=== PATIENT | female | born 1940 | race Caucasian/White ===

== ENCOUNTER 2016-10-05 11:16 | Emergency (ER) | payer OTHER, MEDICARE ==
[~2016-10-05] VITALS: Ht 165.1 cm; Wt 66.0 kg
[~2016-10-05 11:16] MED LIST: CHOL1000 PO; COQ10100 PO; TNR25 PO
[2016-10-05 11:28] VITALS: TEMP 36.5; Ht 165.1 cm; Wt 66.0 kg
--- NOTE | 2016-10-05 12:13 | EMERGENCY ROOM VISIT NOTE ---
History Report prepared by Dione: Luis Enrique Han Under the Supervision of: Dr. Jessenia Stiles M.D. First contact with patient: 11:40 Chief Complaint: WEAKNESS Stated Complaint: WEAKNESS, N,V, DIZZY HX: CARDIAC Nursing Triage Summary: Triage ntoe: pt reports"i woke up panting, nauseated, weak and dizzy i had had a nightmare." pt reports she has vomitted x 3. History of Present Illness The patient is a 76 year old female who presents to the Emergency Room with complaints of persistent generalized weakness that started this morning. The patient is feeling "internal" dizziness, which she describes as her head spinning. The patient has also been feeling nauseated. She vomited three times today and is currently less nauseous than she was earlier today. The patient woke up from a bad nightmare this morning with these symptoms. The patient called her daughter after she woke up. The daughter called the patient's Instrument Assembler (Dr. Enamorado). She was unable to get her an appointment with her doctor today. The patient has a pacemaker with a history of atrial fibrillation. She denies chest pain, back pain, abdominal pain, or leg swelling. The patient's daughter notes that she has a history of having a hard time dealing with her being away, who is on a business trip. The patient does not typically take medications for her stomach. Source of History: patient, family (daughter) Onset: this morning Position: other (generalized) Quality: other (weakness) Timing: other (persistent) Associated Symptoms: + nausea, + vomiting, No chest pain, No abdominal pain , No back pain Note: + dizziness Review of Systems See HPI for pertinent positives & negatives. A total of 10 systems reviewed and were otherwise negative. Past Medical & Surgical Medical Problems: (1) Aortocoronary Bypass (2) Atrial Fibrillation (3) CAD (coronary artery disease) (4) Cholelithiasis Nos (5) Diverticulosis Colon (W/O Ment Of Hemorrhage) (6) Hx of nonmelanoma skin cancer (7) Hyperlipidemia Nec/Nos (8) Hypertension Nos (9) Obstructive sleep apnea (10) Sick sinus syndrome (11) Tachy-yamile syndrome (12) Tick bite of neck Surgical Problems: (1) H/O breast biopsy (2) H/O colonoscopy (3) Hx of parotid biopsy (4) S/P CABG (coronary artery bypass graft) (5) S/P Maze operation for atrial fibrillation (6) S/P tonsillectomy and adenoidectomy Family History FH: heart disease FATHER, Onset:33 FHx: cancer Stroke GRANDMOTHER, Onset:86 Social History Smoking Status: Never Smoker Alcohol Use: none Marital Status: Housing Status: lives with significant other Occupation Status: retired Current/Historical Medications Scheduled Atenolol (Tenormin), 25 MG PO TID Cholecalciferol (Vitamin D3), 1 TAB PO QAM Coenzyme Q10 (Ubidecarenone) (Co Q-10), 150 MG PO DAILY Multivitamin (Multivitamin), 1 TAB PO QAM Warfarin Sodium (Warfarin Sodium), 1 TAB PO 3XWK Warfarin Sodium (Coumadin), 4 MG PO 4XWK Scheduled PRN Nitroglycerin (Nitrostat), 0.4 MG SL UD PRN for chest pain Allergies Coded Allergies: Epinephrine (Verified Allergy, Unknown, CRAWLING SENSATION, 10/05/16) Physical Exam Vital Signs Date Time Temp Pulse Resp B/P (MAP) Pulse Ox O2 Delivery O2 Flow Rate FiO2 10/05/16 13:38 87 20 142/65 96 Room Air 10/05/16 12:22 56 10/05/16 12:11 140/100 10/05/16 11:28 36.5 59 20 97 Room Air Physical Exam Vital signs reviewed. General: Well-appearing female, elderly, in no significant distress. Somewhat anxious and agitated. HEENT: No scleral icterus, PERRLA, neck supple. Atraumatic. Cardiovascular: Regular rate and rhythm, no extra sounds. Pulmonary: Clear to auscultation bilaterally, normal work of breathing. Abdomen: Soft, nontender, nondistended, positive bowel sounds. Musculoskeletal: Atraumatic, no peripheral edema. Neurologic: Patient awake alert and oriented x 3, full strength in all 4 extremities. Cranial nerves 2 through 12 grossly intact. Skin: Warm, dry, no rash Medical Decision & Procedures ER Provider Diagnostic Interpretation: X-ray results as stated below per interpretation by me and the radiologist: CHEST ONE VIEW PORTABLE HISTORY: Atypical chest pain COMPARISON: Chest 10/26/2015. FINDINGS: A few small linear scarlike densities at the left lung base. The lungs are otherwise clear. The heart is normal in size. No pleural effusions. No pneumothorax. Left-sided dual-chamber pacemaker. Poststernotomy changes. IMPRESSION: No acute process. Electronically signed by: Kurtis Díaz M.D. 10/05/2016 12:42 PM Dictated Date/Time: 10/05/2016 12:41 PM Laboratory Results 10/05/16 12:22 Red Blood Count 4.56, Mean Corpuscular Volume 83.8, Mean Corpuscular Hemoglobin 29.4, Mean Corpuscular Hemoglobin Concent 35.1, Mean Platelet Volume 9.8, Neutrophils (%) (Auto) 66.0, Lymphocytes (%) (Auto) 27.3, Monocytes (%) (Auto) 4.2, Eosinophils (%) (Auto) 1.7, Basophils (%) (Auto) 0.6, Neutrophils # (Auto) 3.49, Lymphocytes # (Auto) 1.44, Monocytes # (Auto) 0.22, Eosinophils # (Auto) 0.09, Basophils # (Auto) 0.03 10/05/16 12:22 Test 10/05/16 12:22 10/05/16 12:26 White Blood Count 5.28 K/uL (4.8-10.8) Red Blood Count 4.56 M/uL (4.2-5.4) Hemoglobin 13.4 g/dL (12.0-16.0) Hematocrit 38.2 % (37-47) Mean Corpuscular Volume 83.8 fL (80-100) Mean Corpuscular Hemoglobin 29.4 pg (25-34) Mean Corpuscular Hemoglobin Concent 35.1 g/dl (32-36) Platelet Count 207 K/uL (130-400) Mean Platelet Volume 9.8 fL (7.4-10.4) Neutrophils (%) (Auto) 66.0 % Lymphocytes (%) (Auto) 27.3 % Monocytes (%) (Auto) 4.2 % Eosinophils (%) (Auto) 1.7 % Basophils (%) (Auto) 0.6 % Neutrophils # (Auto) 3.49 K/uL (1.4-6.5) Lymphocytes # (Auto) 1.44 K/uL (1.2-3.4) Monocytes # (Auto) 0.22 K/uL (0.11-0.59) Eosinophils # (Auto) 0.09 K/uL (0-0.5) Basophils # (Auto) 0.03 K/uL (0-0.2) RDW Standard Deviation 41.1 fL (36.4-46.3) RDW Coefficient of Variation 13.4 % (11.5-14.5) Immature Granulocyte % (Auto) 0.2 % Immature Granulocyte # (Auto) 0.01 K/uL (0.00-0.02) Anion Gap 8.0 mmol/L (3-11) Est Creatinine Clear Calc Drug Dose 48.8 ml/min Estimated GFR () 72.0 Estimated GFR (Non- 62.2 BUN/Creatinine Ratio 15.8 (10-20) Calcium Level 9.2 mg/dl (8.5-10.1) Total Bilirubin 0.6 mg/dl (0.2-1) Direct Bilirubin < 0.1 mg/dl (0-0.2) Aspartate Amino Transf (AST/SGOT) 22 U/L (15-37) Alanine Aminotransferase (ALT/SGPT) 20 U/L (12-78) Alkaline Phosphatase 71 U/L (45-117) Total Creatine Kinase 74 U/L (26-192) Creatine Kinase MB 0.6 ng/ml (0.5-3.6) Creatine Kinase MB Ratio 0.8 (0-3.0) Total Protein 7.1 gm/dl (6.4-8.2) Albumin 3.8 gm/dl (3.4-5.0) Bedside Troponin I 0.000 ng/ml (0-0.045) Laboratory results per my review. Medications Administered Medications (Trade) Dose Ordered Sig/Alber Route Start Time Stop Time Status Last Admin Dose Admin Ondansetron HCl (ZOFRAN ODT 4MG Home Pack) 1 homepack STK-MED ONCE .ROUTE 10/05/16 13:40 10/05/16 13:41 DC 10/05/16 13:54 1 HOMEPACK ECG Indication: vomiting Rate (beats per minute): 57 Rhythm: other (atrial paced rhythm) Findings: no acute ischemic change, no ectopy, other (T wave abnormality anterolaterally) Comparison ECG Date: 27 October 2015 Change: no significant change ED Course 1155: Past medical records reviewed. The patient was evaluated in room C7. A complete history and physical examination was performed. 1240: Spoke with Dr. Enamorado, Instrument Assembler. He did not tell the patient to come see him at the hospital. 1325: Reassessed the patient. Discussed the findings with her. She verbalized understanding and agreement of the treatment plan. The patient is ready for discharge. Medical Decision Differential diagnosis: Acute coronary syndrome, pulmonary embolus, aortic dissection, musculoskeletal pain, pneumonia, pleural effusion, pneumothorax Medication Reconciliation: I attest that I have personally reviewed the patient' s current medication list. Blood Pressure Screening: Patient was found to have normal blood pressure on screening and does not require follow-up. This pt was evaluated and appeared to be in no distress. IV access was obtained and lab work was drawn. Pt was placed on the poultry process worker. EKG reveals no acute ischemia, no change from previous. Lab work reveals negative enzymes. Pt made an appt with cardiology today, but decided the ED was necessary when pt began vomiting. That being said, pt woke up nauseated, ate a "large tomato covered in vinegar, black tea with smashed whitney" and then vomited. CXR is negative for acute abnl. Lab work is reassuring. Pt insisted that Dr Enamorado be consulted. A phone call was placed, for which Dr Enamorado graciously returned. He is not in house and not on-call. An urgent cards consult was not felt to be necessary. Pt was d/c with zofran ODT HP and asked to use zantac prn. She will f/u with PCP this week and return to the ED for worsening of symptoms or any medical concerns. Impression Primary Impression: Nausea & vomiting Scribe Attestation The scribe's documentation has been prepared under my direction and personally reviewed by me in its entirety. I confirm that the note above accurately reflects all work, treatment, procedures, and medical decision making performed by me. Departure Information Dispostion Home / Self-Care Referrals Nitesh Fuentes MD (PCP) Forms HOME CARE DOCUMENTATION FORM, IMPORTANT VISIT INFORMATION Patient Instructions My [facility] Additional Instructions Diagnosis: Nausea and vomiting Zantac 75 mg twice daily as needed for gastritis. Zofran 4 mg ODT every 6 hours as needed for nausea. Maintain a bland diet, BRAT: Bananas, rice, applesauce and toast. Advance your diet slowly as tolerated. Follow-up with your physician this week for reevaluation. Have your blood pressure rechecked. Return to the ER for worsening of symptoms or any medical concerns.
[2016-10-05] MEDS ORDERED: WARF4TAB8 PO (12:21)
[2016-10-05] MEDS ORDERED: WARF4TAB PO (12:21)
[2016-10-05] MEDS ORDERED: ATEN-173 PO (12:21)
[2016-10-05] MEDS ORDERED: WARF4TAB43 PO (12:21)
[2016-10-05] MEDS ORDERED: COEN150C PO (12:21)
[2016-10-05 12:36] LABS: BASO % 0.6 %; BASO ABS # 0.03 K/uL (0-0.2); COMPLETE YES; EOS % 1.7 %; HEMATOCRIT 38.2 % (37-47); IG% 0.2 %; LYMPH % 27.3 %; LYMPH ABS # 1.44 K/uL (1.2-3.4); MEAN CELL VOLUME 83.8 fL (80-100); MEAN CORPUSCULAR HEMOGLOBIN 29.4 pg (25-34); MEAN CORPUSCULAR HGB CONC 35.1 g/dl (32-36); MEAN PLATELET VOLUME 9.8 fL (7.4-10.4); MONO % 4.2 %; PLATELET COUNT 207 K/uL (130-400); RED BLOOD COUNT 4.56 M/uL (4.2-5.4); WHITE BLOOD COUNT 5.28 K/uL (4.8-10.8)
--- NOTE | 2016-10-05 12:44 | DIAGNOSTIC IMAGING REPORT ---
CHEST ONE VIEW PORTABLE HISTORY: Atypical chest pain COMPARISON: Chest 10/26/2015. FINDINGS: A few small linear scarlike densities at the left lung base. The lungs are otherwise clear. The heart is normal in size. No pleural effusions. No pneumothorax. Left-sided dual-chamber pacemaker. Poststernotomy changes. IMPRESSION: No acute process. Electronically signed by: Kurtis Díaz M.D. 10/05/2016 12:42 PM Dictated Date/Time: 10/05/2016 12:41 PM
[2016-10-05 12:54] LABS: CALCIUM 9.2 mg/dl (8.5-10.1)
[2016-10-05 12:58] LABS: ALT/SGPT 20 U/L (12-78); BLOOD UREA NITROGEN 14 mg/dl (7-18); BUN/CREATININE RATIO 15.8 (10-20); CARBON DIOXIDE 27 mmol/L (21-32); CHLORIDE 104 mmol/L (98-107); CREATININE 0.91 mg/dl (0.60-1.20); GLUCOSE 94 mg/dl (70-99); POTASSIUM 3.6 mmol/L (3.5-5.1); SODIUM 139 mmol/L (136-145)
[2016-10-05 13:03] LABS: ALKALINE PHOSPHATASE 71 U/L (45-117); AST/SGOT 22 U/L (15-37); CKMB/CK RATIO 0.8 (0-3.0)
[2016-10-05 13:38] VITALS: BP 142/65; PULSE 87; O2SAT 96
[2016-10-05] MEDS ORDERED: ONDANSETRON HOME PACK 4MG OD TAB ONE (13:40)
[2017-04-08] MEDS ORDERED: MULT-506 PO (13:20)
[2017-04-08] MEDS ORDERED: NTRGSL4 SL (14:24)
[2017-04-08] MEDS ORDERED: WARF2TAB PO ×2 (18:36)
[2017-04-08] MEDS ORDERED: COEN1CAP17 PO (18:36)
[2017-04-08] MEDS ORDERED: ATEN25TA PO (18:36)
[2017-04-08] MEDS ORDERED: CTP/1 PO (20:17)
== END 2016-10-05 14:28 | disposition home or self-care (01) ==
LOC: C.EDB 11:20 → C.EDC 14:28
DX: R11.2 Nausea with vomiting, unspecified (principal); Z95.0 Presence of cardiac pacemaker; I48.91 Unspecified atrial fibrillation; I25.10 Atherosclerotic heart disease of native coronary artery without angina pectoris; K80.20 Calculus of gallbladder without cholecystitis without obstruction; E78.5 Hyperlipidemia, unspecified; I10 Essential (primary) hypertension; G47.33 Obstructive sleep apnea (adult) (pediatric); I49.5 Sick sinus syndrome; Z95.1 Presence of aortocoronary bypass graft; Z82.49 Family history of ischemic heart disease and other diseases of the circulatory system; Z80.9 Family history of malignant neoplasm, unspecified; Z79.01 Long term (current) use of anticoagulants; Z79.899 Other long term (current) drug therapy

== ENCOUNTER → 2016-12-14 | Outpatient (CLI) | payer OTHER, MEDICARE ==
[~2016-12-14] MED LIST changes: +ATEN-173 PO; +COEN150C PO; -COQ10100 PO; +MULT-506 PO; +NTRGSL4 SL; -TNR25 PO; +WARF4TAB PO; +WARF4TAB43 PO
[2016-12-14 17:51] LABS: BLOOD UREA NITROGEN 22 mg/dl (7-18); BUN/CREATININE RATIO 22.4 (10-20); CALCIUM 9.1 mg/dl (8.5-10.1); CARBON DIOXIDE 30 mmol/L (21-32); CHLORIDE 104 mmol/L (98-107); GLUCOSE 130 mg/dl (70-99); POTASSIUM 3.8 mmol/L (3.5-5.1); SODIUM 140 mmol/L (136-145)
== END | disposition home or self-care (01) ==
LOC: C.LAB 16:41
PROVIDERS: ATTEND Internal Medicine
DX: I48.2 Chronic atrial fibrillation (principal)

== ENCOUNTER → 2016-12-22 | Outpatient (CLI) | payer OTHER, MEDICARE ==
[~2016-12-22] MED LIST changes: +GADAVIST IV PRN; +NURSING VERBAL MED ORDER ONE
--- NOTE | 2016-12-23 14:31 | MAMMOGRAPHY REPORT ---
BREAST MRI OF BOTH BREASTS : 12/22/2016 CLINICAL HISTORY: The history provided is "screening". COMPARISON: Prior breast MRIs dated 07/23/2010 and 11/04/2008. Technique: The patient was placed prone in a dedicated breast imaging coil. Precontrast axial T1-cherelle ghted, axial T2-weighted fat saturation, and axial T1-weighted fat saturation images were obtained. After the administration of 5.5 mL of Gadavist IV contrast, sequential T1-weighted fat saturation mendoza ges were obtained. Subtraction images were obtained of the dynamic contrast enhanced sequences, and 3-D reformations were performed. The [employer] software was used for kinetic analysis. Findings: There is minimal background parenchymal enhancement bilaterally. Note that a large portion the left superior breast, predominantly the middle and posterior depths, cannot be evaluated on MRI due to sig nificant artifact from the patient's left-sided pacemaker. Within the limitations of the exam, there is no suspicious enhancing mass or area of abnormal non-mass enhancement within the portions of the breast that can be evaluated. There is no evidence of right axillary adenopathy. Note that the left axilla is obscured by artifact . Susceptibly artifact is seen within the sternal region, likely due to prior median sternotomy. Th e remainder of the visualized extramammary soft tissues are grossly unremarkable. IMPRESSION: ACR BI-RADS CATEGORY 1: NEGATIVE Note that a large portion of the left superior breast cannot be evaluated on MRI due to significant a rtifact from the patient's pacemaker. Within the limitations of the exam, there is no MRI evidence o f malignancy in the portions of the breast that can be evaluated. Note that no recent mammograms have been obtained. Mammograms are recommended in addition to MRI, gi ry that some malignancies do not enhance on MRI and are only seen mammographically, such as calcific ations. Additionally, the portions of the left breast which cannot be evaluated on MRI can be evalua ramiro mammographically. Rosemarie Rogel M.D. /:12/22/2016 17:33:46 Flight Nurse: investment analyst, [facility] BI-RADS Code: ACR BI-RADS Category 1: Negative
== END | disposition home or self-care (01) ==
LOC: C.MRI 13:15
PROVIDERS: ATTEND Internal Medicine
DX: Z12.39 Encounter for other screening for malignant neoplasm of breast (principal)

== ENCOUNTER 2017-04-14 20:16 | Emergency (ER) | payer OTHER, MEDICARE ==
[~2017-04-14] VITALS: Ht 165.1 cm; Wt 71.4 kg
[~2017-04-14 20:16] MED LIST changes: -ATEN-173 PO; +ATEN25TA PO; -CHOL1000 PO; -COEN150C PO; +COEN1CAP17 PO; +CTP/1 PO; -GADAVIST IV PRN; -NURSING VERBAL MED ORDER ONE; +WARF2TAB PO; -WARF4TAB PO; -WARF4TAB43 PO
[2017-04-14 20:20] VITALS: TEMP 36.6; Ht 165.1 cm; Wt 71.4 kg
--- NOTE | 2017-04-14 20:42 | EMERGENCY ROOM VISIT NOTE ---
History Report prepared by Dione: Michele Carvajal Under the Supervision of: Dr. Kash Loredo M.D. First contact with patient: 20:23 Chief Complaint: HYPERTENSION Stated Complaint: HIGH BLOOD PRESSURE History of Present Illness The patient is a 77 year old white female with a past medical history of aortocoronary bypass, a-fib, CAD, hyperlipidemia, HTN, pacemaker, S/P CABG who presents to the ED with a cc of constant HTN beginning a few hours ago. Pt has been keeping a bp log since her follow up appointment with her ham trimmer yesterday. She was here for similar symptoms 6 days ago. Pt notes her blood pressure lance to 200 systolic, and she became dizzy. She checked her bp again and received "Error" three times. Pt is here for a blood pressure. Positive taking Coumadin for a-fib, taking two Zoloft since she was prescribed it yesterday, recent travel to [place] three months ago, extra stress because she is packing and moving. Negative chest pain, SOB, headache. Pt was told to stop taking clonidine and take 50 atenolol BID. Source of History: patient Onset: a few hours ago Position: other (global) Quality: other (HTN) Timing: constant Associated Symptoms: No headache, No chest pain, No SOB Note: Associated symptoms: dizzy Review of Systems See HPI for pertinent positives and negatives. A total of ten systems were reviewed and were otherwise negative. Past Medical & Surgical Medical Problems: (1) Aortocoronary Bypass (2) Atrial Fibrillation (3) CAD (coronary artery disease) (4) Cholelithiasis Nos (5) Diverticulosis Colon (W/O Ment Of Hemorrhage) (6) Hx of nonmelanoma skin cancer (7) Hyperlipidemia Nec/Nos (8) Hypertension Nos (9) Obstructive sleep apnea (10) Sick sinus syndrome (11) Tachy-yamile syndrome (12) Tick bite of neck Surgical Problems: (1) H/O breast biopsy (2) H/O colonoscopy (3) Hx of parotid biopsy (4) Pacemaker (5) S/P CABG (coronary artery bypass graft) (6) S/P Maze operation for atrial fibrillation (7) S/P tonsillectomy and adenoidectomy Family History FH: heart disease FATHER, Onset:33 FHx: cancer Stroke GRANDMOTHER, Onset:86 Social History Smoking Status: Never Smoker Alcohol Use: none Marital Status: Housing Status: lives with significant other Occupation Status: retired Current/Historical Medications Scheduled Atenolol (Tenormin), 50 MG PO BID Coenzyme Q10 (Ubidecarenone) (Co Q 10), 100 MG PO DAILY Multivitamin (Multivitamin), 1 TAB PO 3XWK Sertraline Hcl (Zoloft), 50 MG PO DAILY Warfarin Sodium (Coumadin), 2 MG PO 5XWK Warfarin Sodium (Coumadin), 4 MG PO 2XWK Scheduled PRN Nitroglycerin (Nitrostat), 0.4 MG SL UD PRN for Chest Pain Allergies Coded Allergies: Epinephrine (Verified Allergy, Unknown, CRAWLING SENSATION, 04/14/17) Physical Exam Vital Signs Date Time Temp Pulse Resp B/P (MAP) Pulse Ox O2 Delivery O2 Flow Rate FiO2 04/14/17 22:41 59 16 184/95 95 04/14/17 22:25 59 16 184/95 95 04/14/17 22:13 55 22 183/98 96 04/14/17 20:30 61 04/14/17 20:20 36.6 80 16 217/115 95 Room Air Physical Exam GENERAL: Awake, alert, well-appearing, NAD HENT: Normocephalic, atraumatic. EYES: Normal conjunctiva. Sclera non-icteric. NECK: Supple. No nuchal rigidity. FROM. RESPIRATORY: CTAB, no rhonchi, wheezing, crackles CARDIAC: RRR, no MRG ABDOMEN: Soft, NTND, BS+ MSK: No chest wall TTP, no LE edema NEURO: GCS 15, CN 2-12 intact, moves all 4s on command SKIN: No rash or jaundice noted. Medical Decision & Procedures Laboratory Results 04/14/17 20:37 Red Blood Count 4.65, Mean Corpuscular Volume 83.9, Mean Corpuscular Hemoglobin 29.7, Mean Corpuscular Hemoglobin Concent 35.4, Mean Platelet Volume 10.2, Neutrophils (%) (Auto) 49.3, Lymphocytes (%) (Auto) 40.4, Monocytes (%) (Auto) 6.4, Eosinophils (%) (Auto) 3.0, Basophils (%) (Auto) 0.6, Neutrophils # (Auto) 3.16, Lymphocytes # (Auto) 2.59, Monocytes # (Auto) 0.41, Eosinophils # (Auto) 0.19, Basophils # (Auto) 0.04 04/14/17 20:37 Test 04/14/17 20:37 White Blood Count 6.41 K/uL (4.8-10.8) Red Blood Count 4.65 M/uL (4.2-5.4) Hemoglobin 13.8 g/dL (12.0-16.0) Hematocrit 39.0 % (37-47) Mean Corpuscular Volume 83.9 fL (80-100) Mean Corpuscular Hemoglobin 29.7 pg (25-34) Mean Corpuscular Hemoglobin Concent 35.4 g/dl (32-36) Platelet Count 180 K/uL (130-400) Mean Platelet Volume 10.2 fL (7.4-10.4) Neutrophils (%) (Auto) 49.3 % Lymphocytes (%) (Auto) 40.4 % Monocytes (%) (Auto) 6.4 % Eosinophils (%) (Auto) 3.0 % Basophils (%) (Auto) 0.6 % Neutrophils # (Auto) 3.16 K/uL (1.4-6.5) Lymphocytes # (Auto) 2.59 K/uL (1.2-3.4) Monocytes # (Auto) 0.41 K/uL (0.11-0.59) Eosinophils # (Auto) 0.19 K/uL (0-0.5) Basophils # (Auto) 0.04 K/uL (0-0.2) RDW Standard Deviation 39.9 fL (36.4-46.3) RDW Coefficient of Variation 13.3 % (11.5-14.5) Immature Granulocyte % (Auto) 0.3 % Immature Granulocyte # (Auto) 0.02 K/uL (0.00-0.02) Prothrombin Time 16.0 SECONDS (9.0-12.0) Prothromb Time International Ratio 1.5 (0.9-1.1) Activated Partial Thromboplast Time 30.4 SECONDS (21.0-31.0) Partial Thromboplastin Ratio 1.2 Anion Gap 4.0 mmol/L (3-11) Est Creatinine Clear Calc Drug Dose 45.9 ml/min Estimated GFR () 60.2 Estimated GFR (Non- 51.9 BUN/Creatinine Ratio 21.4 (10-20) Calcium Level 8.8 mg/dl (8.5-10.1) Laboratory results reviewed by me ECG Indication: other (HTN) Rate (beats per minute): 60 Rhythm: other (atrial paced) Findings: T-wave inversion (Anterior and in high lateral leads), other ( borderline OH, no other STS changes or TWI, right axis deviation) Comparison ECG Date: 04/08/17 Change: no significant change ED Course 2027: The patient was evaluated in room C10. A complete history and physical exam was performed. 2223: I reevaluated the patient and discussed the patient's current exam findings. 0: I reevaluated the patient. Discussed results and discharge instructions: she verbalized understanding and agreement. The patient is ready for discharge. Medical Decision The patient is a 77 year old white female with a past medical history of aortocoronary bypass, a-fib, CAD, hyperlipidemia, HTN, pacemaker, S/P CABG who presents to the ED with a cc of constant HTN beginning a few hours ago. Differential diagnosis: Etiologies such as benign hypertension, hypertensive emergency, cardiovascular pathology, pheochromocytoma, electrolyte abnormality, renal disease, endorgan damage, as well as others were entertained. Patient was seen and evaluated at the bedside. Patient was concerned as her blood pressure has been high. Patient was recently seen approximately 1 week prior when she had noted hypertension. Patient was given an as needed medication and followed up with her PCP to increase the amount of her atenolol that she takes. Patient states that she was taking her blood pressure today and it read in air and they were concerned that maybe it was too high to be read. Patient denies any headache, dizziness, numbness, or weakness. Patient has no dysarthria. Patient's exam does not show any focal neurologic deficit. Patient is acting appropriately. Patient's initial systolic was around 210. Repeat show that she was 180. Upon review of her medication she does only take atenolol for blood pressure. I did discuss with the patient while the numbers can be concerning that it is just as important not to lower it too quickly as this may also cause unwanted symptoms and/or outcomes. Patient was told the correct way in which to take her blood pressure which should be 5 minutes after being seated in a dark room with a back to chair with her arm resting on something at the level the heart. Patient was told that she needs to take 2 subsequent measurements and then average the 2. Patient was agreeable with this plan. Patient did have blood work that was completed along with an EKG. Patient did not have any obvious acute changes on her EKG. Patient's blood work was fairly unchanged from a week prior. She was deemed suitable for outpatient follow-up and treatment and told to follow-up with her PCP for further medication changes. Patient was agreeable with this plan of care. Patient was given strict follow-up, discharge, and return precautions. All questions were answered. Patient was deemed suitable for outpatient follow-up at this time. Patient agreed with the plan of care and was safely discharged home. Medication Reconcilliation Current Medication List: was personally reviewed by me Blood Pressure Screening Patient's blood pressure: Elevated blood pressure Blood pressure disposition: Referred to PCP Impression Primary Impression: Hypokalemia Scribe Attestation The scribe's documentation has been prepared under my direction and personally reviewed by me in its entirety. I confirm that the note above accurately reflects all work, treatment, procedures, and medical decision making performed by me. Departure Information Dispostion Home / Self-Care Referrals Nitesh Fuentes MD (PCP) Forms HOME CARE DOCUMENTATION FORM, IMPORTANT VISIT INFORMATION, WORK / SCHOOL INSTRUCTIONS Patient Instructions Hypertension Control, Hypertension Dc, My [facility] Additional Instructions Please return to the emergency department if you have worsening or recurrent symptoms not amenable to at-home treatment. Please call for a follow-up appointment with her primary care physician. Please take your medications as prescribed. If you have other concerns and/or complaints please feel free to also call your primary care physician's office or return the ED for further evaluation, management, and treatment. You were found to have an elevated blood pressure today (>120 sytolic or >90 diastolic). Per medicare guidelines, you need to follow up with this blood pressure screening with your Primary Care Physician (PCP). For a new PCP call [phone]. Take your medications as prescribed. You have been examined and treated today on an emergency basis only. This is not a substitute for, or an effort to provide, complete comprehensive medical care. It is impossible to recognize and treat all injuries or illnesses in a single emergency department visit. It is therefore important that you follow up closely with [facility], your PCP, and/or your specialist(s). Call as soon as possible for an appointment. Thank you for your time and consideration. I look forward to speaking with you again soon. Please don't hesitate to call us if you have any questions.
[2017-04-14 20:55] LABS: BASO % 0.6 %; BASO ABS # 0.04 K/uL (0-0.2); COMPLETE YES; IG% 0.3 %; LYMPH % 40.4 %; LYMPH ABS # 2.59 K/uL (1.2-3.4); MEAN CELL VOLUME 83.9 fL (80-100); MEAN CORPUSCULAR HEMOGLOBIN 29.7 pg (25-34); MEAN CORPUSCULAR HGB CONC 35.4 g/dl (32-36); MEAN PLATELET VOLUME 10.2 fL (7.4-10.4); MONO % 6.4 %; NEUT % 49.3 %; PLATELET COUNT 180 K/uL (130-400); RED BLOOD COUNT 4.65 M/uL (4.2-5.4); WHITE BLOOD COUNT 6.41 K/uL (4.8-10.8)
[2017-04-14 21:06] LABS: BUN/CREATININE RATIO 21.4 (10-20); CALCIUM 8.8 mg/dl (8.5-10.1); CREATININE 1.05 mg/dl (0.60-1.20); POTASSIUM 3.4 mmol/L (3.5-5.1)
[2017-04-14 21:08] LABS: INR 1.5 (0.9-1.1); PARTIAL THROMBOPLASTIN RATIO 1.2
[2017-04-14] MEDS ORDERED: SERT1TAB71 PO (21:24)
[2017-04-14] MEDS ORDERED: ATEN50TA PO (21:24)
[2017-04-14 22:41] VITALS: BP 184/95; PULSE 59; O2SAT 95
== END 2017-04-14 22:42 | disposition home or self-care (01) ==
LOC: C.EDB 20:17 → C.EDC 22:42
DX: E87.6 Hypokalemia (principal); Z95.1 Presence of aortocoronary bypass graft; I48.91 Unspecified atrial fibrillation; I25.10 Atherosclerotic heart disease of native coronary artery without angina pectoris; E78.5 Hyperlipidemia, unspecified; I10 Essential (primary) hypertension; K57.30 Diverticulosis of large intestine without perforation or abscess without bleeding; G47.33 Obstructive sleep apnea (adult) (pediatric); I49.5 Sick sinus syndrome; Z95.0 Presence of cardiac pacemaker; Z79.01 Long term (current) use of anticoagulants; Z82.49 Family history of ischemic heart disease and other diseases of the circulatory system; Z80.9 Family history of malignant neoplasm, unspecified

== ENCOUNTER 2017-05-17 22:35 | Emergency (ER) | payer OTHER, MEDICARE ==
[~2017-05-17] VITALS: Ht 165.1 cm; Wt 72.3 kg
[~2017-05-17 22:35] MED LIST changes: -ATEN25TA PO; +ATEN50TA PO; -CTP/1 PO; +SERT1TAB71 PO
[2017-05-17 22:37] VITALS: Ht 165.1 cm; Wt 72.3 kg
--- NOTE | 2017-05-17 23:18 | EMERGENCY ROOM VISIT NOTE ---
History Report prepared by Dione: Ralph Barajas Under the Supervision of: Dr. Bennett Schultz M.D. 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 Her blood pressure medication was higher than normal at 216. She notes tingling in the tips of her fingers. She notes a headache that has somewhat resolved itself. She currently rates her pain a 2/10 in severity. She states that she has gained ten pounds in the last month. She notes that she becomes anxious when her blood pressure abnormally increases. She was seen in the ED a month ago for similar symptoms. She notes that her blood pressure has fluctuated several times in the past month. She notes she has been working with her PCP to change her blood pressure medication. She reports taking Clonidine, though she is no longer taking the medication because her blood pressure was abnormally low. She was advised by her PCP to stop taking Clonidine, which she stopped taking a few days ago. She is currently taking Zoloft, Atenolol, Terazosin, and Coumadin. She has a history of CAD. She denies any history of CVA or atrial fibrillation. She denies any syncope, chest pain, urinary symptoms, back pain, and leg swelling. 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 She notes tingling in the tips of her fingers. She states weight gain. She notes anxiousness. She denies any leg swelling or syncope. Review of Systems See HPI for pertinent positives & negatives. A total of 10 systems reviewed and were otherwise negative. Past Medical & Surgical Medical Problems: (1) Aortocoronary Bypass (2) Atrial Fibrillation (3) CAD (coronary artery disease) (4) Cholelithiasis Nos (5) Diverticulosis Colon (W/O Ment Of Hemorrhage) (6) Hx of nonmelanoma skin cancer (7) Hyperlipidemia Nec/Nos (8) Hypertension Nos (9) Obstructive sleep apnea (10) Sick sinus syndrome (11) Tachy-yamile syndrome (12) Tick bite of neck Surgical Problems: (1) H/O breast biopsy (2) H/O colonoscopy (3) Hx of parotid biopsy (4) Pacemaker (5) S/P CABG (coronary artery bypass graft) (6) S/P Maze operation for atrial fibrillation (7) S/P tonsillectomy and adenoidectomy Family History FH: heart disease FATHER, Onset:33 FHx: cancer Stroke GRANDMOTHER, Onset:86 Social History Smoking Status: Never Smoker Alcohol Use: none Drug Use: none Marital Status: Housing Status: lives with significant other Occupation Status: retired Current/Historical Medications Scheduled Atenolol (Tenormin), 50 MG PO BID Coenzyme Q10 (Ubidecarenone) (Co Q 10), 100 MG PO DAILY Multivitamin (Multivitamin), 1 TAB PO 3XWK Sertraline Hcl (Zoloft), 50 MG PO DAILY Terazosin Hcl (Hytrin), 2 MG PO HS Warfarin Sodium (Coumadin), 2 MG PO 5XWK Warfarin Sodium (Coumadin), 4 MG PO 2XWK Scheduled PRN Clonidine Hcl (Catapres), 0.1 MG PO HS PRN for Hypertension Nitroglycerin (Nitrostat), 0.4 MG SL UD PRN for Chest Pain Allergies Coded Allergies: Epinephrine (Verified Allergy, Unknown, CRAWLING SENSATION, 04/14/17) Physical Exam Vital Signs Date Time Temp Pulse Resp B/P (MAP) Pulse Ox O2 Delivery O2 Flow Rate FiO2 05/18/17 00:38 36.3 84 18 168/89 97 05/17/17 22:37 36.3 81 18 182/105 93 Room Air Physical Exam GENERAL: Patient is very anxious appearing and in no acute distress. HEENT: No acute trauma, normocephalic atraumatic, mucous membranes moist, no nasal congestion, no scleral icterus. NECK: No stridor, no adenopathy, no meningismus, trachea is midline. LUNGS: No dyspnea. Clear to auscultation and equal bilaterally. No wheeze, no rhonchi. HEART: Regular rate and rhythm. No murmurs, rubs, gallops appreciated. ABDOMEN: Soft, nontender, bowel sounds positive, no masses appreciated, no peritonitis. BACK: No midline tenderness, no CVA tenderness EXTREMITIES: Normal motion all extremities, no cyanosis, no edema. NEUROLOGIC: Alert and oriented, no acute motor or sensory deficits, no focal weakness, cranial nerves grossly intact. SKIN: No rash, no jaundice, no diaphoresis. Medical Decision & Procedures Medications Administered Medications (Trade) Dose Ordered Sig/Alber Route Start Time Stop Time Status Last Admin Dose Admin Clonidine HCl (Catapres Tab) 0.1 mg NOW ONCE PO 05/17/17 23:30 05/17/17 23:31 DC 05/17/17 23:28 0.1 MG ECG Indication: other (hypertension) Rate (beats per minute): 63 Rhythm: other (Atrial paced.) Findings: RBBB (incomplete), T-wave inversion (Anterolateral ), no ectopy, other (No STEMI) Change: no significant change (Overall similar morphology when compared to 04/14) ED Course 2303: The patient was evaluated in room B7. A complete history and physical exam was performed. 2356: I reassessed the patient at this time. Her blood pressure is 168/89 and she is feeling better and resting comfortably. I discussed the pros and cons of adding in further blood pressure medication. She is agreeable to Clonidine prn at bed time. 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 I answered all pertaining questions that she had. She expressed understanding and verbalized agreement. The patient will be discharged home. Medical Decision Differential: Benign Hypertension, Hypertensive Urgency/Emergency, Cardiovascular Pathology, Endocrine, Metabolic/Electrolyte, Renal Disease, End organ Damage, amongst other pathologies entertained. 77 yr old female who has been battling issues with HTN over last few weeks with recent stopping of Clonidine, Starting Terazosin and then today spent day cleaning house in preparation for selling it. She is well appearing without symptoms currently. SBP ~ 200 on my evaluation with only faint headache. Has already had extensive work-up here for this. EKG unchanged. Given Clonidine with gradual improvement in her BP. Suspect HTN issues are multifactorial, especially given stress of moving in setting of baseline anxiety, along with some rebound from rapidly stopping Clonidine. Clearly responds well to clonidine, and it also seems to have good calming effect on patient. Will right Rx for evening dose PRN Htn with plan hub cutter apprentice visit in 2 weeks. Discussed risks of hypotension, etc Reviewed symptoms requiring RTED. Medication Reconcilliation Current Medication List: was personally reviewed by me Blood Pressure Screening Patient's blood pressure: Elevated blood pressure Blood pressure disposition: Referred to PCP (to hub cutter apprentice) Impression Primary Impression: Hypertension Scribe Attestation The scribe's documentation has been prepared under my direction and personally reviewed by me in its entirety. I confirm that the note above accurately reflects all work, treatment, procedures, and medical decision making performed by me. Departure Information Dispostion Home / Self-Care Prescriptions Clonidine Hcl (CATAPRES) 0.1 Mg Tab 0.1 MG PO HS Y for Hypertension, #20 TAB Prov: Bennett Schultz M.D. 05/18/17 Referrals No Doctor, Assigned (PCP) Forms HOME CARE DOCUMENTATION FORM, IMPORTANT VISIT INFORMATION, WORK / SCHOOL INSTRUCTIONS Patient Instructions My [facility] [employer] Additional Instructions Your blood pressure was elevated during this visit. This is quite common in many people who are being evaluated in the Emergency Department for many reasons. However, it is important that you have your Primary Care Provider recheck your blood pressure and discuss whether treatment will be needed. 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 If you develop severe headaches, chest pain, weakness in arms or legs, or other concerning symptoms call 911.
[2017-05-17] MEDS ORDERED: CLONIDINE HCL 0.1 MG TAB PO ONE (23:30)
[2017-05-17] MEDS ORDERED: HYT/2 PO (23:40)
[2017-05-18] MEDS ORDERED: CTP/1 PO (00:10)
[2017-05-18 00:38] VITALS: BP 168/89; PULSE 84; TEMP 36.3; O2SAT 97
== END 2017-05-18 00:39 | disposition home or self-care (01) ==
LOC: C.EDB 22:36
DX: I10 Essential (primary) hypertension (principal); I45.10 Unspecified right bundle-branch block; I48.91 Unspecified atrial fibrillation; E78.5 Hyperlipidemia, unspecified; I25.10 Atherosclerotic heart disease of native coronary artery without angina pectoris; G47.33 Obstructive sleep apnea (adult) (pediatric); K57.30 Diverticulosis of large intestine without perforation or abscess without bleeding; Z95.1 Presence of aortocoronary bypass graft; Z95.0 Presence of cardiac pacemaker; Z79.01 Long term (current) use of anticoagulants; Z79.899 Other long term (current) drug therapy; Z82.49 Family history of ischemic heart disease and other diseases of the circulatory system; Z80.9 Family history of malignant neoplasm, unspecified; Z82.3 Family history of stroke